=== PATIENT | male | born 1950 ===

== ENCOUNTER 2025-03-16 01:41 | Outpatient (CLI) | payer OTHER, SELFPAY ==
--- NOTE | 2025-03-17 08:26 | W.PFT ---
Date of service: 03/16/25 Time of Service: 14:50 Pulmonary Function Test Result Indications: Asthma Impression 1. Good patient effort was noted. ATS standards for reproducibility were met. 2. Spirometry showed mild obstructive lung disease with an FEV1 of 102% (3.04 L) 3. Following the administration of a bronchodilator there was not a significant response
== END 2025-03-16 01:42 | disposition home or self-care (01) ==
PROVIDERS: Visit Provider Chiropractor
DX: J45.998 Other asthma (principal)
CPT/HCPCS: 94060